=== PATIENT | male | born 1950 | race Caucasian/White ===

== ENCOUNTER 2021-01-04 05:38 | Day surgery (SDC) | payer MEDICARE ==
[2020-12-29 15:41] LABS: BASOPHILS % (AUTO) 0.7 % (0-1); EOSINOPHILS % (AUTO) 0.8 % (0-6); LYMPHOCYTES # (AUTO) 0.9 X10'3 (1.1-4.8); LYMPHOCYTES % (AUTO) 19.8 % (21-51); MEAN CORPUSCULAR HEMOGLOBIN 33.7 PG (27.0-31.0); MEAN CORPUSCULAR HGB CONC 34.5 g/dL (33.0-36.5); MEAN CORPUSCULAR VOLUME 97.6 FL (78-98); MEAN PLATELET VOLUME 8.8 FL (7.4-10.4); MONOCYTES # (AUTO) 0.4 X10'3 (0-0.9); MONOCYTES % (AUTO) 7.7 % (2-12); NEUTROPHILS # (AUTO) 3.3 X10'3 (1.8-7.7); PRE OP HEMATOCRIT 43.3 % (42.0-52.0); PRE OP PLATELET COUNT 188 X10'3 (140-440); RED BLOOD COUNT 4.44 X10'6 (4.70-6.10); RED CELL DISTRIBUTION WIDTH 13.1 % (11.5-14.5)
[2020-12-29 15:53] LABS: ALBUMIN/GLOBULIN RATIO 1.4 (1.1-1.5); ALKALINE PHOSPHATASE 61 IU/L (46-116); BLOOD UREA NITROGEN 14 MG/DL (7-18); BUN/CREATININE RATIO 16.7 (5.4-32.0); CALCIUM 8.8 MG/DL (8.5-10.1); CHLORIDE 97 MMOL/L (99-107); CREATININE 0.84 MG/DL (0.60-1.10); PRE OP ALT 33 U/L (30-65); PRE OP ANION GAP 6 (8-16); PRE OP AST 16 U/L (10-37); PRE OP BILIRUB, TOTAL 0.4 MG/DL (0.0-1.0); PRE OP GLUCOSE 110 MG/DL (70-104); PRE OP POTASSIUM 4.7 MMOL/L (3.4-5.1); PRE OP SODIUM 132 MMOL/L (135-145); TOTAL CARBON DIOXIDE 29.4 MMOL/L (24-32); TOTAL PROTEIN 6.8 G/DL (6.4-8.2); eGFR > 90 ML/MIN
[~2021-01-04] VITALS: Ht 188 cm; Wt 81.6 kg
[2021-01-04] VITALS (8 sets, daily range): BP systolic 104–132; BP diastolic 65–79
[~2021-01-04 05:38] MED LIST: ASPI-611 PO; DOCUMENT DATE & TIME OF BETA-BLOCKER PO ONE; ICOS1CAP PO; LEVO50TA8 PO; MAGN500C16 PO; MECO10005; MV-M1TAB19 PO; NEBI10TA2 PO; OLIV250C PO; PRAV20TA4 PO; SAW500CA11 PO; SILD20TA2 PO; TURM500C4 PO; VITA100C25; [UNRECOGNIZED DRUG - OTHER]; cefazolin/dext.iso 2gm/100ml IV ONE; famotidine 20mg tablet PO ONE; ringers solution, lacted 1,000 ML IV SCH
[2021-01-04] MEDS ORDERED: BUPIVAcaine/PF 2.5mg/ml (0.25%) 10ml vial ONE (06:36)
[2021-01-04] MEDS ORDERED: LIDOcaine 1% 30ml preserv. free vial ONE (06:36)
[2021-01-04 06:49] LABS: ISTAT ANION GAP 13 (8-12); ISTAT BUN 13 mg/dL (7-18); ISTAT CL 95 mmol/L (99-107); ISTAT CREATININE 0.8 mg/dL (0.8-1.3); ISTAT GLUCOSE 103 mg/dL (70-105); ISTAT Hct 47 %PCV (42-52); ISTAT IONIZED CALCIUM 1.26 mmol/L (1.03-1.32); ISTAT K 4.2 mmol/L (3.5-5.1); ISTAT NA 134 mmol/L (135-145); ISTAT TOTAL CO2 26 mmol/L (24-32); ISTAT eGFR > 90 ML/MIN; POC BUN/CREATININE RATIO 16.3 (5.4-32.0)
[2021-01-04] MEDS ORDERED: midazolam 1 mg/ML 2ml injection ONE (07:30)
[2021-01-04] MEDS ORDERED: fentaNYL/PF 50MCG/1 ML 2ML syringe ONE (07:30)
[2021-01-04] MEDS ORDERED: propofol inj 20 ML IV ONE (07:33)
[2021-01-04] MEDS ORDERED: rocuronium 10mg/ml inj IV ONE (07:33)
[2021-01-04] MEDS ORDERED: LIDOcaine 2% (20mg/ml) 5ml vial ONE (07:33)
[2021-01-04] MEDS ORDERED: ondansetron/PF 4mg/2ml inj IV PRN (08:15)
[2021-01-04] MEDS ORDERED: morphine 2 MG/ML inj. syringe IV PRN (08:15)
[2021-01-04] MEDS ORDERED: proCHLORperazine 10 MG/2 ml inj IV PRN (08:15)
[2021-01-04] MEDS ORDERED: morphine 4 MG/ML inj SYRINge IV PRN (08:15)
[2021-01-04] MEDS ORDERED: meperidine/PF 25mg/ml syringe IV PRN ×3 (08:15)
[2021-01-04] MEDS ORDERED: ringers solution, lacted 1,000 ML IV SCH (08:15)
[2021-01-04] MEDS ORDERED: acetaminophen 1,000mg/100ml IV 100 ML IV ONE (08:37)
[2021-01-04] MEDS ORDERED: ePHEDrine 50MG/ML INJ. ONE (08:37)
[2021-01-04] MEDS ORDERED: ondansetron/PF 4mg/2ml inj ONE (08:37)
[2021-01-04] MEDS ORDERED: neostigmine methylsulfate 1 MG/ML 10ml vial ONE (08:37)
[2021-01-04] MEDS ORDERED: dexamethasone sod phosphate 4mg/ml inj. ONE (08:37)
[2021-01-04] MEDS ORDERED: glycopyrrolate 0.2mg/ml inj ONE (08:37)
--- NOTE | 2021-01-04 08:50 | NUR ---
ADMITTED TO PACU FROM OR ACCOMPANIED BY ANESTHESIA. INTIAL PHYSICAL ASSESSMENT DONE AND RECORDED. REPORT RECEIVED FROM ANESTHESIA.
[2021-01-04] MEDS ORDERED: HYDROcodone/acetaminophen 5mg/325mg tablet PO PRN (09:05)
--- NOTE | 2021-01-04 10:00 | NUR ---
DISCHARGE CRITERIA MET, DISCHARGE INSTRUCTIONS GIVEN, DEMONSTRATES VERBAL UNDERSTANDING. DISCHARGED HOME IN GOOD CONDITION.
== END 2021-01-04 10:00 | disposition home or self-care (01) ==
LOC: PAS 05:38
PROVIDERS: ATTEND Surgery
DX: K40.90 Unilateral inguinal hernia, without obstruction or gangrene, not specified as recurrent (principal); K42.9 Umbilical hernia without obstruction or gangrene; I10 Essential (primary) hypertension; E78.5 Hyperlipidemia, unspecified; N40.0 Benign prostatic hyperplasia without lower urinary tract symptoms; E03.9 Hypothyroidism, unspecified; Z98.890 Other specified postprocedural states; Z79.899 Other long term (current) drug therapy; Z79.82 Long term (current) use of aspirin; Z20.822 Contact with and (suspected) exposure to COVID-19; Z82.3 Family history of stroke; Z83.6 Family history of other diseases of the respiratory system; Z82.49 Family history of ischemic heart disease and other diseases of the circulatory system
CPT/HCPCS: 36415; 49585; 49650; 80047; 80053; 85025; 93005; C1781; J0131; J1100; J2001; J2250; J2405; J2704; J2710; J3010; J3490; J7120; U0003; U0005; Z7506; Z7508; Z7512; A4215; A4618